=== PATIENT | female | born 1970 | race Caucasian/White ===

== ENCOUNTER 2016-07-06 20:13 | Inpatient (IN) | payer BC ==
--- NOTE | 2016-07-06 20:18 | PDOC ---
Rapid Medical Evaluation Time Seen by Provider: 07/06/16 20:13 Medical Evaluation: Allergies Allergy/AdvReac Type Severity Reaction Status Date / Time No Known Allergies Allergy Verified 02/09/16 19:40 07/06/16 20:13 I have performed a brief exam on this patient Pt c/o SOB with intermittent pain to right lung base hx of pneumonthorax x 2 to right side. No known etiology 100% o2 sat, LCTA bilateral. No smoking hx. Chest pa/lat ordered Pt will be seen in the main ED.
--- NOTE | 2016-07-06 20:52 | PDOC ---
*Physical Exam - Vital Signs Last Vital Signs Temp Pulse Resp BP Pulse Ox 98.1 F 73 16 134/76 100 07/06/16 20:15 07/06/16 20:15 07/06/16 20:15 07/06/16 20:15 07/06/16 20:15 ED Treatment Course - LABORATORY CBC & Chemistry Diagram: 07/07/16 05:10 07/07/16 05:10 Medical Decision Making - Medical Decision Making 07/06/16 20:50 agree with care from JHONATAN Gant Pt with h/o recurrent Ptx's presents with difficulty breathing. Will get Ct chest to r/o PTx. 07/06/16 23:09 Pt found to have a 20-30% right sided subpulmonic PTX. Spoke to Dr Short ( thoracic surgery). He will see her in am. Pt to be placed on non-rebreather and have serial chest xrays. Nest one in 6 hours. *DC/Admit/Observation/Transfer Diagnosis at time of Disposition: Pneumothorax
--- NOTE | 2016-07-06 21:07 | PDOC ---
[id number] 4d RESPIRATORY Time Seen by Provider: 07/06/16 20:13 - History of Present Illness Initial Comments: 07/06/16 20:51 CHIEF COMPLAINT: right sided discomfort to rib/lung HISTORY OF PRESENT ILLNESS: 45 yo F with hx of 2 pneumothorax to R lung presents to ED with right sided discomfort with inspiration. Patient states she has been feeling this discomfort for the past two days but she came to the ED today because it is becoming worse. Patient denies any difficulty breathing but does feel discomfort to her right side that "feels like previous pneumothorax." She denies fever, vomiting, diarrhea, but does report some nausea today. No recent travel or sick contacts. PAST MEDICAL HISTORY: as per HPI FAMILY HISTORY: Denies SOCIAL HISTORY: Denies tobacco, alcohol, illicit drug use. SURGICAL HISTORY: breast implants (8 years ago), chest tubes 1-2 years ago ALLERGIES: No known drug allergies REVIEW OF SYSTEMS General/Constitutional: Denies fever or chills. Denies weakness, weight change. HEENT: Denies change in vision. Denies ear pain or discharge. Denies sore throat. Cardiovascular: Denies chest pain or shortness of breath. Respiratory: Discomfort to R side with inspiration. Denies cough, wheezing, or hemoptysis. Gastrointestinal: Denies nausea, vomiting, diarrhea or constipation. Denies rectal bleeding. Genitourinary: Denies dysuria, frequency, or change in urination. Musculoskeletal: Denies joint or muscle swelling or pain. Denies neck or back pain. Skin and breasts: Denies rash or easy bruising. Neurologic: Denies headache, vertigo, loss of consciousness, or loss of sensation. PHYSICAL EXAM General Appearance: Well-appearing, appropriately dressed. No apparent distress , no intoxication. HEENT: EOMI, PERRLA, normal ENT inspection, normal voice, TMs normal, pharynx normal. No conjunctival pallor. No photophobia, scleral icterus. Respiratory/Chest: Lungs CTAB. No shortness of breath, chest tenderness, respiratory distress, accessory muscle use. No crackles, rales, rhonchi, stridor , wheezing, dullness Cardiovascular: RRR. S1, S2. Gastrointestinal/Abdominal: Normal bowel sounds. Abdomen soft, non-distended. No tenderness or rebound tenderness. No organomegaly, pulsatile mass, guarding , hernia, hepatomegaly, splenomegaly. Musculoskeletal/Extremities: Normal inspection. FROM of all extremities, normal capillary refill. No tenderness to extremities, pedal edema, swelling, erythema or deformity. Integumentary: Healed R lateral upper thoracic scars s/p chest tube insertions. Appropriate color, dry, warm. No cyanosis, erythema, jaundice or rash Neurologic: robotics technician II-XII intact. Fully oriented, alert. Appropriate mood/affect. Motor strength 5/5. No appreciable EOM palsy, facial droop or sensory deficit. 07/06/16 21:51 Past History - Past Medical History Allergies/Adverse Reactions: Allergies Allergy/AdvReac Type Severity Reaction Status Date / Time shellfish derived Allergy Unknown Verified 07/08/16 11:43 Home Medications: Ambulatory Orders Acetaminophen [Tylenol .Regular Strength -] 650 mg PO Q6H PRN #0 tablet Ibuprofen [Motrin -] 400 mg PO Q6H PRN #0 tablet 07/09/16 Anemia: No Asthma: Yes (SPONTANEOUS PNEUMOTHORAX) Cancer: No Cardiac Disorders: No CVA: No COPD: No CHF: No Dementia: No Diabetes: No Disorders: No HTN: No Hypercholesterolemia: No Liver Disease: No Suicide Attempt (Hx): No Seizures: No Thyroid Disease: No - Surgical History Abdominal Surgery: No Appendectomy: No Cardiac Surgery: Yes (chest tube insertion X2) Cholecystectomy: No Neurologic Surgery: No Orthopedic Surgery: No - Psycho/Social/Smoking Cessation Hx Anxiety: No Suicidal Ideation: No Smoking History: Never smoked Have you smoked in the past 12 months: No Number of Cigarettes Smoked Daily: 0 Information on smoking cessation initiated: No Hx Alcohol Use: No Drug/Substance Use Hx: No Substance Use Type: None Hx Substance Use Treatment: No *Physical Exam - Vital Signs Last Vital Signs Temp Pulse Resp BP Pulse Ox 98.1 F 73 16 134/76 100 07/06/16 20:15 07/06/16 20:15 07/06/16 20:15 07/06/16 20:15 07/06/16 20:15 ED Treatment Course - LABORATORY CBC & Chemistry Diagram: 07/07/16 05:10 07/07/16 05:10 - RADIOLOGY Radiology Studies Ordered: Category Date Time Status CHEST CT WITHOUT CONTRAST [CT] Stat CT Scan 07/06/16 20:49 Ordered RIBS BILATERAL [RAD] Stat Radiology 07/06/16 20:50 Ordered Medical Decision Making - Medical Decision Making 07/06/16 21:53 45 yo F with hx of 2 pneumothoraces presents to ED with R sided discomfort with inspiration. -CXR Chest x-ray negative for pulmonary pathology. Patient lungs are CTAB, but due to hx of recurrent pneumothoraces, will order CT for further eval. -Non-contract chest CT -UA, Ucx, urine -Spiral CT r/o renal stone Labs: UA: 3 RBC, 29 WBC. Will begin treatment for UTI. -500 mg Keflex po Awaiting CT results. 07/06/16 23:[address] results: 20-30% R sided pneumothorax identified. Several pleural adhesions are noted within the right lower chest. Spiral CT results: Multiple bilateral 3 mm nonobstructing renal calculi noted. 5.2 cm left hepatic lobe soft tissue lesion is seen which is unchanged in comparison to a chest CT exam of 12/25/14. On a statistical basis this finding probably represents a large hemangioma and less likely fibronodular hyperplasia or an ademona. Sonographic evaluation is suggested. Incidental note is made of several small stable left and right hepatic lobe cysts/hemangiomas. Moderate colonic fecal retention. Small amount of free fluid is seen within the cul-de-sac. ER attending MD Thompson discussed case with CT surgery. Will admit to ICU for close monitoring, non-rebreather, serial x-rays, and reevaluation. Discussed case with patient's PCP MD Bo, who accepts patient to ICU admission. Discussed case with ICU AIX SYSTEM ADMINISTRATOR Sharad, who accepts patient to ICU admission. *DC/Admit/Observation/Transfer Diagnosis at time of Disposition: Pneumothorax Qualifiers: Pneumothorax type: unspecified pneumothorax Qualified Code(s): J93.9 - Pneumothorax, unspecified - Discharge Dispostion Disposition: HOME Condition at time of disposition: Improved Admit: Yes
[2016-07-06 21:21] LABS: URINE APPEARANCE TURBID; URINE BILIRUBIN NEGATIVE (NEGATIVE); URINE BLOOD NEGATIVE (NEGATIVE); URINE COLOR YELLOW; URINE GLUCOSE (UA) NEGATIVE (NEGATIVE); URINE KETONE NEGATIVE (NEGATIVE); URINE LEUK ESTERASE 1+ (NEGATIVE); URINE NITRITE NEGATIVE (NEGATIVE); URINE PROTEIN NEGATIVE (NEGATIVE); URINE UROBILINOGEN NEGATIVE E.U./dl (0.2-1.0)
[2016-07-06 21:25] LABS: URINE BACTERIA RARE /hpf (NONE SEEN); URINE MUCUS RARE; URINE RBC 3 /hpf (0-3); URINE WBC 29 /hpf (3-5); YEAST MANY
[2016-07-06] MEDS ORDERED: CEPHALEXIN MONOHYDRATE 500 MG CAPSULE (UD) PO ONE (23:25)
[2016-07-06] MEDS ORDERED: ACETAMINOPHEN 325 MG TABLET (FP) PO PRN (23:30)
[2016-07-06] MEDS ORDERED: CEPHALEXIN MONOHYDRATE 250 MG CAPSULE (FP) ONE (23:38)
[2016-07-06 23:40] LABS: BASOPHIL 0.7 % (0-2.0); EOSINOPHIL 1.2 % (0-4.5); MCH 31.8 pg (25.7-33.7); MCHC 33.6 g/dl (32.0-36.0); MEAN CELL VOLUME 94.6 fl (80-96); MEAN PLT VOLUME 8.1 fl (7.5-11.1); NEUTROPHILS 66.8 % (42.8-82.8); PLATELET COUNT 254 K/MM3 (134-434); RDW 13.2 % (11.6-15.6); WHITE BLOOD COUNT 7.5 K/mm3 (4.0-10.0)
[2016-07-06 23:59] LABS: INR 1.04 (0.82-1.09); PROTHROMBIN TIME (PATIENT) 11.4 SEC (9.98-11.88)
[2016-07-07 00:07] LABS: ALBUMIN 3.7 g/dl (3.4-5.0); ANION GAP 11 (8-16); BILIRUBIN,TOTAL 0.6 mg/dL (0.2-1.0); CALCIUM 8.9 mg/dL (8.5-10.1); CO2 24 mmol/L (21-32); CREATININE 0.8 mg/dL (0.55-1.02); GLUCOSE,RANDOM 94 mg/dL (74-106); SGOT/AST 22 U/L (15-37); SGPT/ALT 19 U/L (12-78)
[2016-07-07 00:08] LABS: ALK PHOS 45 U/L (45-117)
[2016-07-07] MEDS ORDERED: morphine CARPU-JECT 2 MG/1 ML DISP.SYRIN IVPUSH PRN (00:34)
[2016-07-07] MEDS ORDERED: OXYCODONE/APAP 5/325MG COMBO TABLET PO PRN (00:35)
[2016-07-07 00:39] VITALS: BMI 22.8
[2016-07-07] MEDS ORDERED: oxyCODONE HCL 5 MG TABLET PO PRN (00:41)
[2016-07-07] MEDS ORDERED: ACETAMINOPHEN 325 MG TABLET (FP) PO PRN (00:41)
--- NOTE | 2016-07-07 00:44 | CONSULT ---
Consult Consult Specialty:: Pulm/CC - History of Present Illness Chief Complaint: SOB History of Present Illness: Pt is a 45yr old woman with PMHx of breast implants and 2 previous spontaneous pneumothorax. In the ER found to have third rt pneumothorax. Of note, all three have been sia-menstrual cycle. Pt admitted to the ICU for further management and observation. Per report, chest tube not indicated at this time. Upon assessment pt denies chest pain/headache/n/v and endorses intermittent sob. 96/ 58, 60s (sinus on tele), 100% on 2LNC, 98.3 RR low 20s. - History Source History Provided By: Patient, Medical Record Limitations to Obtaining History: Other (endorses being comfortable communicating in Italian) - Past Medical History Pulmonary: Yes: Other (Spontaneus pneumothorax) ...LMP: 06/09/16 ...LMP Comment: expect period tomorrow ...: No Additional Medical History: spontaneous pneumothax - Alcohol/Substance Use Hx Alcohol Use: No - Smoking History Smoking history: Never smoked Have you smoked in the past 12 months: No Aproximately how many cigarettes per day: 0 - Social History ADL: Independent Occupation: [email or web address] Home Medications - Allergies Allergies/Adverse Reactions: Allergies Allergy/AdvReac Type Severity Reaction Status Date / Time No Known Allergies Allergy Verified 07/06/16 20:15 - Home Medications Home Medications: Ambulatory Orders NK [No Known Home Medication] 07/06/16 Family Disease History - Family Disease History Family Disease History: Other: Father (healthy and living), Mother (healthy and living), Sister (healthy and living) Review of Systems - Review of Systems Cardiovascular: reports: Chest Pain (rt side), Shortness of Breath Gastrointestinal: denies: Diarrhea, Nausea, Vomiting Genitourinary: reports: Menses, Other (denies itching). denies: Discharge Neurological: reports: Dizziness, Headache Physical Exam Vital Signs: Vital Signs Period Temp Pulse Resp BP Sys/Palmer Pulse Ox Last 24 Hr 98.1 F-98.3 F 58-73 16-18 98-134/56-76 100-100 Intake & Output 07/04/16 07/05/16 07/06/16 07/07/16 23:59 23:59 23:59 23:59 Weight 132 lb 15.02 oz Constitutional: Yes: Well Nourished, No Distress, Calm Eyes: Yes: WNL, PERRL HENT: Yes: WNL Neck: Yes: WNL Cardiovascular: Yes: S1, S2 Respiratory: Yes: Diminished (rt side), On Nasal O2. No: Accessory Muscle Use, Rales, Rhonchi, Wheezes Gastrointestinal: Yes: Normal Bowel Sounds. No: Tenderness ...Rectal Exam: Yes: Deferred Edema: No Peripheral Pulses WNL: Yes (+2 bilateral pedal pulses ) Integumentary: Yes: WNL Psychiatric: Yes: WNL Labs: Abnormal Lab Results 07/06/16 21:05 Ur Leukocyte Esterase 1+ H Imaging - Results Chest X-ray: Image Reviewed Cat Scan: Report Reviewed (chest) Other: Report Reviewed (ab/pel) Assessment/Plan Pt is a 45yr old woman with PMHx of breast implants and 2 previous spontaneous pneumothorax. Now with third rt side pneumothorax. Pulm: -O2 support -Surgical consult for possible chest tube -Serial chest xrays -Continuous pulse ox ID: +leukocyte esterase in urine with yeast. Pt denies discharge/symptoms, wbc wnl, afebrile. -Monitor off antibiotics for now Cardiac: pt endorsing intermittent rt side chest pain, likely from pneumothorax -f/u cardiac enzymes -repeat ekg in a.m Neuro -Pain management Renal -Replete electrolytes prn GI: Hepatic lobe soft tissue lesions, hepatic cysts/hemangiomas on ab/pel ct -Consider hepatic sono for f/u Prophylactic -Stool softener in setting of pain management
[2016-07-07 03:01] LABS: TROPONIN I < 0.02 ng/ml (0.00-0.05)
[2016-07-07 03:22] LABS: MAGNESIUM 1.9 mg/dL (1.8-2.4)
[2016-07-07 06:03] LABS: MCH 31.9 pg (25.7-33.7); MCHC 33.7 g/dl (32.0-36.0); MEAN CELL VOLUME 94.7 fl (80-96); MEAN PLT VOLUME 8.1 fl (7.5-11.1); PLATELET COUNT 247 K/MM3 (134-434); RDW 12.7 % (11.6-15.6); WHITE BLOOD COUNT 7.1 K/mm3 (4.0-10.0)
[2016-07-07 06:16] LABS: CALCIUM 8.4 mg/dL (8.5-10.1)
[2016-07-07 06:17] LABS: CREATININE 0.7 mg/dL (0.55-1.02)
[2016-07-07] MEDS ORDERED: IBUPROFEN 400 MG TABLET (FP) PO ONE ×2 (07:45→08:45)
--- NOTE | 2016-07-07 08:26 | PN ---
Physical Exam: SUBJECTIVE: Patient seen and examined at bed side in ICU. patient sitting up comfortably in no respiratory distress. Patient currently menstruating and reports cramps. BP 86/54 HR 64 with no JVD, started on IVNS. No overnight events. She denies fever, chills, cough, sputum production, and hemoptysis. saturating 100% on 2LNC OBJECTIVE: Vital Signs Period Temp Pulse Resp BP Sys/Palmer Pulse Ox Last 24 Hr 98.1 F-98.3 F 56-62 18-20 86-102/50-61 100-100 GENERAL: The patient is awake, alert, and fully oriented, in no acute distress, calm HEAD: Normal with no signs of trauma. EYES: extraocular movements intact, sclera anicteric, conjunctiva clear. ENT: Ears normal, nares patent, oropharynx clear without exudates, moist mucous membranes. NECK: Trachea midline, full range of motion, supple. LUNGS: BS Diminished on Right side, clear to auscultation bilaterally, no wheezes, no crackles, no accessory muscle use. sat 100% 2L NC HEART: Regular rate and rhythm, S1, S2 without murmur, rub or gallop. ABDOMEN: Soft, nontender, nondistended, normoactive bowel sounds, no guarding, no rebound, no hepatosplenomegaly, no masses. EXTREMITIES: 2+ pulses, warm, well-perfused, no edema. NEUROLOGICAL: Normal speech, gait not observed. PSYCH: Normal mood, normal affect. SKIN: Warm, dry, normal turgor, no rashes or lesions noted Laboratory Results - last 24 hr 07/07/16 07/07/16 05:10 05:10 WBC 7.1 RBC 3.71 Hgb 11.8 Hct 35.1 MCV 94.7 MCHC 33.7 RDW 12.7 Plt Count 247 MPV 8.1 Sodium 142 Potassium 4.1 Chloride 111 H Carbon Dioxide 26 Anion Gap 5 L BUN 14 Creatinine 0.7 Random Glucose 95 Calcium 8.4 L Active Medications Generic Name Dose Route Start Last Admin Trade Name Freq PRN Reason Stop Dose Admin Acetaminophen 650 mg 07/06/16 23:30 Tylenol - PO Q6H PRN PAIN Acetaminophen 325 mg 07/07/16 00:41 Tylenol - PO Q6H PRN PAIN Morphine Sulfate 1 mg 07/07/16 00:34 Morphine Injection - IVPUSH Q3H PRN PAIN Oxycodone HCl 5 mg 07/07/16 00:41 Roxicodone - PO Q6H PRN PAIN ASSESSMENT/PLAN: Pt is a 45yr old woman with PMHx of breast implants and 2 previous spontaneous pneumothorax, s/p right VATS, bullectomy, and mechanical pleurodesis (2015), presented to [facility] with complaints of right chest pain and shortness of breath during her menstruation. . Pulm: in light of history and presentation suspicious for third Catamenial Pneumothorax s/p VAT not on BCP, An approximately 20 - 30% right-sided pneumothorax is seen which is principally subpulmonic in location. The location and distribution of this recurrent pneumothorax is similar to a prior CT exam of 12/31/2014. Her repeat chest x-ray today showed stable pneumothorax. -supplemental O2 2L NC -Surgical consult Dr. cao, appreciated, -Serial CXR, will consider consulting IR if increase in size and clinical stability. -Continuous pulse ox -OBGY consult fort possible hormonal therapy ID: +leukocyte esterase in urine with yeast. Pt denies discharge/symptoms, wbc wnl, afebrile. -Monitor off antibiotics for now Cardiac: pt endorsing intermittent rt side chest pressure inc with deep inspiration, likely from pneumothorax -cardiac enzymes negative x 1 Hypotension: currenlty clinicaly stable, in no acute distress, not a tension pneumothorax HR normal and no JVD. -start IVNS Neuro -Pain management Renal -Replete electrolytes prn GI: Hepatic lobe soft tissue lesions, hepatic cysts/hemangiomas on ab/pel ct -Consider hepatic sono for f/u Prophylactic -Stool softener in setting of pain management -DVT, heparin sub q FEN IVNS replete electrolyte as needed regular diet Dispo: continue ICU will follow CXR size and stability Visit type - Emergency Visit Emergency Visit: Yes ED Registration Date: 07/06/16 Care time: The patient presented to the Emergency Department on the above date and was hospitalized for further evaluation of their emergent condition. - New Patient This patient is new to me today: Yes Date on this admission: 07/06/16 - Critical Care Critical Care patient: Yes Total Critical Care Time (in minutes): 45 Critical Care Statement: The care of this patient involved high complexity decision making to prevent further life threatening deterioration of the patient 's condition and/or to evalute & treat vital organ system(s) failure or risk of failure.
[2016-07-07] MEDS ORDERED: SODIUM CHLORIDE 1,000 ML IV SCH (09:15)
--- NOTE | 2016-07-07 13:00 | CONSULT ---
Consult Consult Specialty:: Thoracic Surgery Referred by:: Dr. Renetta Bo Reason for Consultation:: Right pneumothorax - History of Present Illness Chief Complaint: Shortness of breath History of Present Illness: A 45-year-old female with history of recurrent catamenial right pneumothorax, s/ p right VATS, bullectomy, and mechanical pleurodesis (2016), presented to [facility] with complaints of right chest pain and shortness of breath. Her workup including chest x-ray and CT chest showed small right pneumothorax. She reports that she has been well until she developed her respiratory symptoms during her menstruation. She feels better with oxygen support today. Her repeat chest x-ray showed stable pneumothorax. She denies fever, chills, cough , sputum production, and hemoptysis. - History Source History Provided By: Patient, Medical Record Limitations to Obtaining History: No Limitations - Past Medical History Pulmonary: Yes: Other (Spontaneus pneumothorax) ...LMP: 06/09/16 ...LMP Comment: expect period tomorrow ...: No Additional Medical History: spontaneous pneumothax - Past Surgical History Additional Surgical History: s/p right VATS, bullectomy, mechanical pleurodesis , and partial pleurectomy (2016) - Alcohol/Substance Use Hx Alcohol Use: No - Smoking History Smoking history: Never smoked Have you smoked in the past 12 months: No Aproximately how many cigarettes per day: 0 - Social History ADL: Independent Occupation: babysits Home Medications - Allergies Allergies/Adverse Reactions: Allergies Allergy/AdvReac Type Severity Reaction Status Date / Time No Known Allergies Allergy Verified 07/06/16 20:15 - Home Medications Home Medications: Ambulatory Orders NK [No Known Home Medication] 07/06/16 Family Disease History - Family Disease History Family Disease History: Other: Father (healthy and living), Mother (healthy and living), Sister (healthy and living) Review of Systems - Review of Systems Constitutional: reports: No Symptoms Eyes: reports: No Symptoms HENT: reports: No Symptoms Neck: reports: No Symptoms Cardiovascular: reports: No Symptoms Respiratory: reports: SOB Gastrointestinal: reports: No Symptoms Genitourinary: reports: No Symptoms Breasts: reports: No Symptoms Reported Musculoskeletal: reports: No Symptoms Integumentary: reports: No Symptoms Neurological: reports: No Symptoms Endocrine: reports: No Symptoms Hematology/Lymphatic: reports: No Symptoms Psychiatric: reports: No Symptoms Physical Exam Vital Signs: Vital Signs Temperature 98.1 F 07/07/16 06:32 Pulse Rate 56 L 07/07/16 06:32 Respiratory Rate 18 07/07/16 09:00 Blood Pressure 86/54 07/07/16 06:32 O2 Sat by Pulse Oximetry (%) 100 07/07/16 09:00 Constitutional: Yes: Well Nourished, No Distress Eyes: Yes: WNL HENT: Yes: WNL Neck: Yes: WNL Cardiovascular: Yes: WNL Respiratory: Yes: WNL (minimally decreased breath sound in right base.) Gastrointestinal: Yes: WNL ...Rectal Exam: Yes: Deferred Renal/: Yes: WNL Musculoskeletal: Yes: WNL Extremities: Yes: WNL Edema: No Peripheral Pulses WNL: Yes Integumentary: Yes: WNL Neurological: Yes: WNL Psychiatric: Yes: WNL Labs: CBC, BMP 07/07/16 05:10 07/07/16 05:10 Imaging - Results Chest X-ray: Report Reviewed, Image Reviewed Cat Scan: Report Reviewed, Image Reviewed Assessment/Plan A 45-year-old female with history of recurrent catamenial pneumothorax, s/p right VATS, bullectomy, mechanical pleurodesis, and partial pleurectomy, who presented to [facility] with complaints of SOB and right chest pain. Her radiographic studies were reviewed and discussed with the patient and her in extensive detail. She appears to have small recurrent right pneumothorax during her menstruation. However she remains stable clinically and radiologically with no evidence of expanding or tension pneumothorax. She was given multiple options including conservative medical management with serial chest x-ray, pleural drain and definitive surgical intervention (redo VATS, bullectomy, and radical pleurectomy). She wishes to proceed with medical management as she remains stable with no respiratory distress at the present time. She is aware and understood her medical and surgical condition. All questions were answered in satisfactory manner. 1. Continue supportive care 2. Serial chest x-ray 3. IR pleural catheter if worsening clinically or expanding pneumothorax 4. retail key holder consult for hormonal therapy 5. Discussed with PMD, pulmonary and ICU service 6. Thank you for the interesting consult. Will follow with you.
--- NOTE | 2016-07-07 13:19 | HP ---
Admitting History and Physical - Primary Care Physician PCP: Renetta Bo S - Admission Chief Complaint: R CP and SOB History of Present Illness: 45 yo F with hx of 2 pneumothorax to R lung presents to ED with right sided discomfort with inspiration. Patient states she has been feeling this discomfort for the past two days but she came to the ER last night because it is becoming worse. Patient denies any difficulty breathing but does feel discomfort to her right side that "feels like previous pneumothorax." She denies fever, vomiting, diarrhea, but does report some nausea. LMP Now states not No recent travel or sick contacts. History Source: Patient, Medical Record Limitations to Obtaining History: No Limitations - Past Medical History Pulmonary: Yes: Other (Spontaneus pneumothorax) ...LMP: 06/09/16 ...LMP Comment: expect period tomorrow ...: No - Smoking History Smoking history: Never smoked Have you smoked in the past 12 months: No Aproximately how many cigarettes per day: 0 - Alcohol/Substance Use Hx Alcohol Use: No History of Substance Use: reports: None - Social History Usual Living Arrangement: Yes: With Spouse ADL: Independent Occupation: babysits History of Recent Travel: No Home Medications - Allergies Allergies/Adverse Reactions: Allergies Allergy/AdvReac Type Severity Reaction Status Date / Time shellfish derived Allergy Unknown Verified 07/08/16 11:43 - Home Medications Home Medications: Ambulatory Orders NK [No Known Home Medication] 07/06/16 Family Disease History - Family Disease History Family Disease History: Other: Father (healthy and living), Mother (healthy and living), Sister (healthy and living) Review of Systems - Review of Systems Constitutional: denies: Chills, Fever Eyes: denies: Blurred Vision, Double Vision HENT: denies: Difficult Swallowing, Ear Pain Neck: denies: Stiffness, Tenderness Cardiovascular: reports: Chest Pain, Shortness of Breath. denies: Edema, Palpitations Respiratory: denies: Cough, Hemoptysis Gastrointestinal: denies: Abdominal Pain, Constipation, Diarrhea, Vomiting Genitourinary: denies: Dysuria, Flank Pain Musculoskeletal: denies: Back Pain, Joint Pain Neurological: denies: Change in LOC, Change in Speech, Confusion, Seizure, Syncope, Unsteady Gait Hematology/Lymphatic: denies: Easily Bruised, Excessive Bleeding Psychiatric: denies: Altered Sleep Pattern, Anxiety, Depression Physical Examination Vital Signs: Vital Signs Temperature 98.1 F 07/07/16 06:32 Pulse Rate 56 L 07/07/16 06:32 Respiratory Rate 18 07/07/16 09:00 Blood Pressure 86/54 07/07/16 06:32 O2 Sat by Pulse Oximetry (%) 100 07/07/16 09:00 Findings/Remarks: pt seen in ICU; axox3 NAD; at bedside Constitutional: Yes: No Distress, Calm Eyes: Yes: Conjunctiva Clear HENT: Yes: Atraumatic Neck: Yes: Supple Cardiovascular: Yes: Regular Rate and Rhythm Respiratory: Yes: Diminished (R sided) Gastrointestinal: Yes: Soft. No: Distention, Tenderness Renal/: No: CVA Tenderness - Left, CVA Tenderness - Right Musculoskeletal: No: Joint Stiffness, Joint Swelling Extremities: No: Cold, Cool Edema: No Peripheral Pulses WNL: Yes Integumentary: No: Rash, Venous Stasis Changes Neurological: Yes: WNL, Alert, Oriented ...Motor Strength: WNL Psychiatric: Yes: WNL, Alert, Oriented. No: Agitated, Suicidal Ideation Labs: CBC, BMP 07/07/16 05:10 07/07/16 05:10 Imaging - Results Chest X-ray: Report Reviewed Other: Report Reviewed Assessment/Plan 45 female with h/o spontaneous pneumothorax admitted with R CP/SOB new small pneumothorax seen on CXR case d/w pulm ICU dr Hazel and CT surgery dr Guadarrama and films reviewed no surgery indicated at this point will check serial CXR if pneumo stable can be DC home in 1-2 days and f/u outpt also to see TELEMARKETING SALES REPRESENTATIVE for possible catamenial pneumothorax and BCP pills in order to prevent future pneumothorax DVT PFX d/w pt and staff, d/w pt's at bedside d/w ICU and CT sx attendings T time 90 min
--- NOTE | 2016-07-07 13:29 | EKG ---
Test Reason : Blood Pressure : / mmHG Vent. Rate : 060 BPM Atrial Rate : 060 BPM P-R Int : 122 ms QRS Dur : 090 ms QT Int : 448 ms P-R-T Axes : 062 073 068 degrees QTc Int : 448 ms NORMAL SINUS RHYTHM NORMAL ECG WHEN COMPARED WITH ECG OF 30-SEP-2015 00:10, NO SIGNIFICANT CHANGE WAS FOUND Confirmed by CARLOS KAPADIA MD ([id number]) on 07/07/2016 1:29:03 PM Referred By: Confirmed By:CARLOS KAPADIA MD
--- NOTE | 2016-07-07 13:52 | PN ---
Teaching Attending Note Name of Resident: Derek Lopez ATTENDING PHYSICIAN STATEMENT I saw and evaluated the patient. I reviewed the resident's note and discussed the case with the resident. I agree with the resident's findings and plan as documented. SUBJECTIVE: Breathing feels about the same. CXR : no significant change in small Right PTX. Intake & Output 07/04/16 07/05/16 07/06/16 07/07/16 23:59 23:59 23:59 23:59 Weight 132 lb 15.02 oz Last Vital Signs Temp Pulse Resp BP Pulse Ox 98.1 F 56 L 18 86/54 100 07/07/16 06:32 07/07/16 06:32 07/07/16 09:00 07/07/16 06:32 07/07/16 09:00 Active Medications Acetaminophen (Tylenol -) 650 mg PO Q6H PRN PRN Reason: PAIN Acetaminophen (Tylenol -) 325 mg PO Q6H PRN PRN Reason: PAIN Sodium Chloride (Normal Saline -) 1,000 mls @ 125 mls/hr IV ASDIR CASTILLO Last Admin: 07/07/16 10:00 Dose: 125 mls/hr Morphine Sulfate (Morphine Injection -) 1 mg IVPUSH Q3H PRN PRN Reason: PAIN Oxycodone HCl (Roxicodone -) 5 mg PO Q6H PRN PRN Reason: PAIN Constitutional: Yes: Well Nourished, No Distress Eyes: Yes: WNL, PERRL HENT: Yes: WNL Neck: Yes: WNL Cardiovascular: Yes: S1, S2 Respiratory: Yes: Clear, On Nasal O2. No: Accessory Muscle Use, Rales, Rhonchi , Wheezes Gastrointestinal: Yes: Normal Bowel Sounds. No: Tenderness ...Rectal Exam: Yes: Deferred Edema: No Peripheral Pulses WNL: Yes (+2 bilateral pedal pulses ) Integumentary: Yes: WNL Psychiatric: Yes: WNL Labs: Assessment/Plan (?) Catamenial PTX Recurrent PTX (3rd) Surgical consult noted -> for now will follow CXR and clinical symptoms since PTX is small O2 BD TX PRN OOB to chair Incentive Spirometry PO as tolerated Will likely need OPCs Dr Hazel
[2016-07-07] MEDS: IBUPROFEN 400 MG TABLET (FP) PO PRN (17:00)
[2016-07-07] MEDS: HEPARIN NA (PORCINE) 5,000 UNITS/ML 1ML VIAL SQ SCH (21:39)
[2016-07-08] MEDS: IBUPROFEN 400 MG TABLET (FP) PO PRN ×3 (02:35→18:38)
[2016-07-08] MEDS: HEPARIN NA (PORCINE) 5,000 UNITS/ML 1ML VIAL SQ SCH ×3 (06:32→22:29)
--- NOTE | 2016-07-08 07:52 | PN ---
Physical Exam: SUBJECTIVE: Patient seen and examined this am in the ICU. patient reports same chest pressure on inspiration and breathing. patient sitting confortaably in no acute distress. afebrile, vitals stable. No overnight events. She denies fever, chills, cough, sputum production, and hemoptysis. saturating 100% on 2LNC. CXR yesterday Slightly decreased right pneumothorax. Will go down for another CXR today. OBJECTIVE: Vital Signs Period Temp Pulse Resp BP Sys/Palmer Pulse Ox Last 24 Hr 98.2 F-98.8 F 51-80 14-23 91-100/53-68 100 GENERAL: The patient is awake, alert, and fully oriented, in no acute distress, calm HEAD: Normal with no signs of trauma. EYES: extraocular movements intact, sclera anicteric, conjunctiva clear. ENT: Ears normal, nares patent, oropharynx clear without exudates, moist mucous membranes. NECK: Trachea midline, full range of motion, supple. LUNGS: BS Diminished on Right side, clear to auscultation bilaterally, no wheezes, no crackles, no accessory muscle use. sat 100% 2L NC HEART: Regular rate and rhythm, S1, S2 without murmur, rub or gallop. ABDOMEN: Soft, discomfurt on palpation attributes to menstruation cramps, nondistended, normoactive bowel sounds, no guarding, no rebound, no hepatosplenomegaly, no masses. EXTREMITIES: 2+ pulses, warm, well-perfused, no edema. NEUROLOGICAL: Normal speech, gait not observed. PSYCH: Normal mood, normal affect. SKIN: Warm, dry, normal turgor, no rashes or lesions noted Active Medications Generic Name Dose Route Start Last Admin Trade Name Freq PRN Reason Stop Dose Admin Acetaminophen 650 mg 07/06/16 23:30 Tylenol - PO Q6H PRN PAIN Acetaminophen 325 mg 07/07/16 00:41 Tylenol - PO Q6H PRN PAIN Heparin Sodium (Porcine) 5,000 unit 07/07/16 22:00 07/08/16 06:32 Heparin - SQ 5,000 unit TID CASTILLO Administration Sodium Chloride 1,000 mls @ 125 mls/hr 07/07/16 09:15 07/07/16 10:00 Normal Saline - IV 125 mls/hr ASDIR CASTILLO Administration Ibuprofen 400 mg 07/07/16 15:06 07/08/16 02:35 Motrin - PO 400 mg Q6H PRN Administration PAIN Morphine Sulfate 1 mg 07/07/16 00:34 Morphine Injection - IVPUSH Q3H PRN PAIN Oxycodone HCl 5 mg 07/07/16 00:41 Roxicodone - PO Q6H PRN PAIN ASSESSMENT/PLAN: Pt is a 45yr old woman with PMHx of breast implants and 2 previous spontaneous pneumothorax, s/p right VATS, bullectomy, and mechanical pleurodesis (2015), presented to [facility] with complaints of right chest pain and shortness of breath during her menstruation. . Pulm: in light of history and presentation suspicious for third Catamenial Pneumothorax s/p VAT not on BCP, An approximately 20 - 30% right-sided pneumothorax is seen which is principally subpulmonic in location. The location and distribution of this recurrent pneumothorax is similar to a prior CT exam of 12/31/2014. Her repeat chest x-ray yesterday shows slightly decreased right pneumothorax. Repeat Chest x-ray today no change from yesterday. -supplemental O2 2L NC -Surgical consult Dr. cao, appreciated, -Serial CXR, will consider consulting IR if increase in size and clinical stability. -Continuous pulse ox -OBGY consult appreciated. OBGYN suggestion starting on ocp or depo provera as outpatient. -Incentive spirometer ID: +leukocyte esterase in urine with yeast. Pt denies discharge/symptoms, wbc wnl, afebrile. -Monitor off antibiotics for now Cardiac: pt endorsing intermittent rt side chest pressure inc with deep inspiration, likely from pneumothorax -cardiac enzymes negative x 1 Hypotension: resolved -d/c IVF Neuro -Pain management Renal -Replete electrolytes prn GI: Hepatic lobe soft tissue lesions, hepatic cysts/hemangiomas on ab/pel ct -Consider hepatic sono for f/u Prophylactic -Stool softener in setting of pain management -DVT, heparin sub q FEN IVNS replete electrolyte as needed regular diet Dispo: if official read not increase in size can be discharged home for supportive care and Depo. Visit type - Emergency Visit Emergency Visit: Yes ED Registration Date: 07/06/16 Care time: The patient presented to the Emergency Department on the above date and was hospitalized for further evaluation of their emergent condition. - New Patient This patient is new to me today: No - Critical Care Critical Care patient: Yes Total Critical Care Time (in minutes): 45 Critical Care Statement: The care of this patient involved high complexity decision making to prevent further life threatening deterioration of the patient 's condition and/or to evalute & treat vital organ system(s) failure or risk of failure.
--- NOTE | 2016-07-08 09:05 | CON.OBG ---
Consult Reason for Consultation:: 45 y/o with ptx and ? catamennial endometriosis - History of Present Illness Chief Complaint: as above History of Present Illness: 45 y/o G0 admitted with 3rd ptx. Consulted for ? catamennial endometriosis. Pt states that this is 3rd time experienced ptx with cycle, but not consecutive. She admits to regular cycles, no pain, no pain during sex. Denies intermenstrual bleeding or pain. No cycles issues before . States she attempted to become about 28 years of age ans was told her tubes were blocked. Describes a test, which sound like and HSG that was done to prove it. Did not have laparoscopy or further workup. Denies std. - History Source History Provided By: Patient Limitations to Obtaining History: No Limitations - Past Medical History HOOP CUTTER: No: Alzheimer's, CVA, Dementia, Migraine, Multiple Sclerosis, Peripheral Neuropathy, Parkinson's, Seizure, Syncope, TIA, Vertigo, Other Cardio/Vascular: No: AFIB, Aneurysm, Aortic Insufficiency, Aortic Stenosis, CAD , CHF, Deep Vein Thrombosis, HTN, Hyperlipdemia, VA, Mitral Insufficiency, Mitral Stenosis, Murmur, Pulmonary Hypertension, Other Pulmonary: Yes: Other (Spontaneus pneumothorax) Gastrointestinal: No: Ascites, Cancer, Constipation, Crohn's Disease, Diverticulitis, Diverticulosis, Esophageal Varices, Gastritis, GERD, GI Bleed, Hemorrhoids, Hiatal Hernia, Inflamatory Bowel Disease, Irritable Bowel Disease, Pancreatitis, Peptic Ulcer Disease, Ulcerative Colitis, Other Hepatobiliary: No: Cirrhosis, Cholelithiasis, Cholecystitis, Choledocholithiasis , Hepatitis A, Hepatitis B, Hepatitis C, Other Renal/: No: Renal Failure, Renal Inusuff, BPH, Cancer, Hematuria, Hemodialysis , Neurogenic Bladder, Renal Calculi, UTI, Other Reproductive: No: Ectopic , Endometriosis, Fibroids, PID, Polycystic Ovary Syndrome, Postmenopausal, Other ...LMP: 06/09/16 ...LMP Comment: expect period tomorrow ...: No Heme/Onc: No: Anemia, B12 Deficiency, Bleeding Disorder, Cancer, Current Chemotherapy, Current Radiation Therapy, Hemochromatosis, Hypercoaguable State, Myeloproliferative Synd, Sickle Cell Disease, Sickle Cell Trait, Thrombocytopenia, Other Infectious Disease: No: AIDS, C-Diff, Herpes Zoster, HIV, MRSA, STD's, Tuberculosis, VREF, Other Psych: No: Addictions, Anxiety, Bipolar, Depression, Panic, Psychosis, Schizophrenia, Other Musculoskeletal: No: Bursitis, Chronic low back pain, Hemiparesis, Hemiplegia, Osteoarthritis, Paraplegia, Other ENT: No: Allergic Rhinitis, Sinusitis, Other Endocrine: No: [place]'s Disease, [place]'s Disease, Diabetes Insipidus, Diabetes Mellitus, Hyperparathyroidism, Hyperthyroidism, Hypothyroidism, Osteopenia, SIADH, Other Dermatology: No: Basal Cell, Cellulitis, Eczema, Melanoma, Psoriasis, Squamous Cell, Other Additional Medical History: spontaneous pneumothax - Past Surgical History Past Surgical History: No: None, AAA Repair, AICD, Amputation, Appendectomy, Arthrosocopy, AV Fistula/Graft, Bariatric Surgery, Breast Biopsy, Bypass, CABG, Carotid Endarterectomy, Cataract Removal, Cholecystectomy, Colectomy, Colonoscopy, Colostomy, Craniotomy, , Cystectomy, Hernia Repair, Hysterectomy, Ileal Conduit, Ileosotomy, Joint Replacement, Kidney Transplant, Laminectomy, Liver Transplant, Mastectomy, Nephrectomy, Oopherectomy, Orchiectomy, Permanent Pacemaker, Prostatectomy, Splenectomy, Stent, Thoracotomy , TURP, Tonsillectomy, Tubal Ligation, Upper Endoscopy, Valve Replacement, Vasectomy, Vein Stripping/Ligation Additional Surgical History: s/p right VATS, bullectomy, mechanical pleurodesis , and partial pleurectomy (2016) - Alcohol/Substance Use Hx Alcohol Use: No History of Substance Use: denies: None, Cocaine, Heroin, Marijuana, Prescription , Tranquilizers - Smoking History Smoking history: Never smoked Have you smoked in the past 12 months: No Aproximately how many cigarettes per day: 0 - Social History ADL: Independent Occupation: [employer] Home Medications - Allergies Allergies/Adverse Reactions: Allergies Allergy/AdvReac Type Severity Reaction Status Date / Time No Known Allergies Allergy Verified 07/06/16 20:15 - Home Medications Home Medications: Ambulatory Orders NK [No Known Home Medication] 07/06/16 Family Disease History - Family Disease History Family Disease History: Other: Father (healthy and living), Mother (healthy and living), Sister (healthy and living) Review of Systems - Review of Systems Constitutional: reports: No Symptoms Eyes: reports: No Symptoms HENT: reports: No Symptoms Neck: reports: No Symptoms Cardiovascular: reports: No Symptoms Respiratory: reports: No Symptoms Gastrointestinal: reports: No Symptoms Genitourinary: reports: No Symptoms Breasts: reports: No Symptoms Reported Musculoskeletal: reports: No Symptoms Integumentary: reports: No Symptoms Neurological: reports: No Symptoms Endocrine: reports: No Symptoms Hematology/Lymphatic: reports: No Symptoms Psychiatric: reports: No Symptoms 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 Questionable Catamennial ptx. Suggestion witlh be starting on ocp or depo provera. If possibe, a bx at ptx site to determine endometrisos site. Will see as an opt and consider staring ocp or depo. Discussed lupron, but would start with ocp
--- NOTE | 2016-07-08 11:18 | PN ---
Progress Note (short form) - Note Progress Note: PT without any increased syptoms of SOB, pain and overall her breathing has improved. Vital Signs Period Temp Pulse Resp BP Sys/Palmer Pulse Ox Last 24 Hr 98.2 F-98.8 F 51-74 11-18 86-102/53-66 100 PE: GEN: appears cofortable Lungs: CTA b/l CXR-07/07 at 1500-improved right Pntx, seen at right costophrenic angle CXR 07/08 unchanged right pntx at costophrenic angle CBC, BMP 07/07/16 05:10 07/07/16 05:10 A/P: 45 yo female with recurrent right pntx with evidence of improvement Repeat CXR finding show improvement S/w Dr. Guadarrama and the plan is for a repeat cxr in the am of 07/09 and if no change she is stable and may f/u as needed as an outpt. If there is a worsening of SOB/CP please obtain repeat CXR, if at any time the pntx becomes larger and she has symptoms then please have IR place a guided pigtail catheter. Pt seen by LAB SCIENTIST and she will follow up as an oupt <Michelle Ford - Last Filed: 07/08/16 11:10> - Note Progress Note: seen and examined. agreed with above. stable right ptx. repeat cxr tomorrow. <Ulices Guadarrama - Last Filed: 07/09/16 12:15>
--- NOTE | 2016-07-08 12:57 | PN ---
Progress Note, Physician Chief Complaint: in bed nad axox3 no new c/o, no new CP/SOB, feels a little better; has some pelvic cramps sec to her period labs tests and meds d/w pt - Current Medication List Current Medications: Active Medications Acetaminophen (Tylenol -) 650 mg PO Q6H PRN PRN Reason: PAIN Acetaminophen (Tylenol -) 325 mg PO Q6H PRN PRN Reason: PAIN Heparin Sodium (Porcine) (Heparin -) 5,000 unit SQ TID CASTILLO Last Admin: 07/08/16 06:32 Dose: 5,000 unit Ibuprofen (Motrin -) 400 mg PO Q6H PRN PRN Reason: PAIN Last Admin: 07/08/16 09:57 Dose: 400 mg Morphine Sulfate (Morphine Injection -) 1 mg IVPUSH Q3H PRN PRN Reason: PAIN Oxycodone HCl (Roxicodone -) 5 mg PO Q6H PRN PRN Reason: PAIN - Objective Vital Signs: Vital Signs Temperature 98.6 F 07/08/16 10:00 Pulse Rate 65 07/08/16 10:00 Respiratory Rate 16 07/08/16 10:00 Blood Pressure 94/65 07/08/16 10:00 O2 Sat by Pulse Oximetry (%) 100 07/08/16 09:00 Constitutional: Yes: No Distress, Calm Eyes: Yes: Conjunctiva Clear HENT: Yes: Atraumatic Neck: Yes: Supple Cardiovascular: Yes: Regular Rate and Rhythm Respiratory: Yes: CTA Bilaterally Gastrointestinal: Yes: Soft. No: Distention, Tenderness Genitourinary: No: CVA Tenderness - Left, CVA Tenderness - Right Musculoskeletal: No: Joint Stiffness, Joint Swelling Extremities: No: Cold, Cool Edema: No Peripheral Pulses WNL: Yes Integumentary: No: Rash, Venous Stasis Changes Neurological: Yes: WNL, Alert, Oriented ...Motor Strength: WNL Psychiatric: Yes: WNL, Alert, Oriented. No: Agitated, Suicidal Ideation Labs: CBC, BMP 07/07/16 05:10 07/07/16 05:10 INR, PTT INR 1.04 (0.82-1.09) 07/06/16 23:30 - ....Imaging Other: Report Reviewed Assessment/Plan 45 female with h/o spontaneous pneumothorax admitted with new small pneumothorax films reviewed, pneumothorax stable at this point still no surgery indicated at this point will check serial CXR if pneumo stable can be DC home in am per CT surgery also to see STEEL HEATER for possible catamenial pneumothorax and BCP pills in order to prevent future pneumothorax DVT PFX d/w pt and staff, d/w ICU attending T time 40 min
--- NOTE | 2016-07-08 16:08 | PN ---
Teaching Attending Note Name of Resident: Derek Lopez ATTENDING PHYSICIAN STATEMENT I saw and evaluated the patient. I reviewed the resident's note and discussed the case with the resident. I agree with the resident's findings and plan as documented. SUBJECTIVE: Breathing feels a little better today. No CP. CXR: improving right PTX Intake & Output 07/05/16 07/06/16 07/07/16 07/08/16 23:59 23:59 23:59 23:59 Intake Total 1350 1950 Balance 1350 1950 Weight 132 lb 15.02 oz Last Vital Signs Temp Pulse Resp BP Pulse Ox 98.6 F 60 17 96/58 100 07/08/16 10:00 07/08/16 14:00 07/08/16 14:00 07/08/16 14:00 07/08/16 09:00 Active Medications Acetaminophen (Tylenol -) 650 mg PO Q6H PRN PRN Reason: PAIN Acetaminophen (Tylenol -) 325 mg PO Q6H PRN PRN Reason: PAIN Heparin Sodium (Porcine) (Heparin -) 5,000 unit SQ TID CASTILLO Last Admin: 07/08/16 15:37 Dose: 5,000 unit Ibuprofen (Motrin -) 400 mg PO Q6H PRN PRN Reason: PAIN Last Admin: 07/08/16 09:57 Dose: 400 mg Morphine Sulfate (Morphine Injection -) 1 mg IVPUSH Q3H PRN PRN Reason: PAIN Oxycodone HCl (Roxicodone -) 5 mg PO Q6H PRN PRN Reason: PAIN Constitutional: Yes: Awake and alert, No Distress Eyes: Yes: WNL, PERRL HENT: Yes: WNL Neck: Yes: WNL Cardiovascular: Yes: S1, S2 Respiratory: Yes: Clear, On Nasal O2. No: Accessory Muscle Use, Rales, Rhonchi , Wheezes Gastrointestinal: Yes: Normal Bowel Sounds. No: Tenderness ...Rectal Exam: Yes: Deferred Edema: No Peripheral Pulses WNL: Yes (+2 bilateral pedal pulses ) Integumentary: Yes: WNL Psychiatric: Yes: WNL Labs: Assessment/Plan (?) Catamenial PTX Recurrent PTX (3rd) Surgical consult noted -> follow CXR and clinical symptoms since PTX is small O2 BD TX PRN OOB to chair Incentive Spirometry PO as tolerated Will likely need OPCs Dr Hazel
[2016-07-09] MEDS: HEPARIN NA (PORCINE) 5,000 UNITS/ML 1ML VIAL SQ SCH ×2 (06:40→13:29)
[2016-07-09] MEDS: IBUPROFEN 400 MG TABLET (FP) PO PRN ×2 (06:41→16:13)
--- NOTE | 2016-07-09 08:06 | PN ---
[id number] states she is feeling better, her breathing continues to improve, denies SOB. States the pain in her right chest she had with taking deep breaths is improved. No new complaints. Last Vital Signs Temp Pulse Resp BP Pulse Ox 98.5 F 61 18 93/58 100 07/09/16 06:00 07/09/16 06:00 07/09/16 06:00 07/09/16 06:00 07/08/16 21:00 Exam: Gen: NAD, pleasant and cooperative Cardio: RRR Resp: CTA bilat. 07/07 CXR- slightly decreased right pneumothorax 07/08 CXR- unchanged right pneumothorax 07/09 CXR- pending <Valeria Keane - Last Filed: 07/09/16 08:18> - Note Progress Note: seen and examined. agree with above. no major c/o. cxr showed stable right basal ptx. no evidence of expanding or tension ptx. remains clinically stable with no cardiopulmonary distress at the present time. 1. cont supp care 2. d/c plan per primary team 3. f/u with thoracic surgery as outpatient <Ulices Guadarrama - Last Filed: 07/09/16 14:47> Problem List - Problems (1) Pneumothorax Assessment/Plan: Recurrent right pneumothorax, symptoms continuing to improve CXR ordered for this morning Follow-up CXR, if stable patient may follow-up with Dr. Guadarrama as needed as an outpatient Pt will see Dr. Rutherford as outpt for OCP Code(s): J93.9 - PNEUMOTHORAX, UNSPECIFIED Qualifiers: Pneumothorax type: unspecified pneumothorax Qualified Code(s): J93.9 - Pneumothorax, unspecified <Valeria Keane - Last Filed: 07/09/16 08:18>
--- NOTE | 2016-07-09 12:28 | PN ---
Progress Note (short form) - Note Progress Note: PULMONARY APPEARS STABLE NO CHANGE IN EXAM CXR NO CHANGE RIGHT PTX S/P RVATS 05/2015:RML BLEBECTOMY MECHANICAL PLEURODESIS PARTIAL PLEURECTOMY PATH REPORT REVIEWED AWAITING T-SURG OPINION Amy GRANADOS MD
[2016-07-09 14:03] VITALS: BP 110/54; PULSE 69; TEMP 98.4
--- NOTE | 2016-07-09 15:13 | PN ---
Progress Note (short form) - Note Progress Note: Addendum: 1. Repeat chest x-ray on 07/12/16, as outpatient 2. Follow up with PMD and Thoracic Surgery next week 3. Spoke with Dr. Renetta Bo
--- NOTE | 2016-07-09 15:57 | DS ---
Physical Examination Vital Signs: Vital Signs Temperature 98.4 F 07/09/16 13:59 Pulse Rate 69 07/09/16 13:59 Respiratory Rate 18 07/09/16 13:59 Blood Pressure 110/54 07/09/16 13:59 O2 Sat by Pulse Oximetry (%) 100 07/08/16 21:00 Findings/Remarks: OOB to chair walks without SOB still has some R CP but better; CXR per CT Sx and pulm no change; OK to DC home and f/u next week; d/w pt and at bedside all DC instructions. Constitutional: Yes: No Distress, Calm Eyes: Yes: Conjunctiva Clear HENT: Yes: Atraumatic Neck: Yes: Supple Cardiovascular: Yes: Regular Rate and Rhythm Respiratory: Yes: CTA Bilaterally Gastrointestinal: Yes: Soft. No: Distention, Tenderness Renal/: No: CVA Tenderness - Left, CVA Tenderness - Right Musculoskeletal: No: Joint Stiffness, Joint Swelling Extremities: No: Cold, Cool Edema: No Peripheral Pulses WNL: Yes Integumentary: No: Rash, Venous Stasis Changes Neurological: Yes: WNL, Alert, Oriented ...Motor Strength: WNL Psychiatric: Yes: WNL, Alert, Oriented. No: Agitated, Suicidal Ideation Labs: CBC, BMP 07/07/16 05:10 07/07/16 05:10 Discharge Summary Reason For Visit: PNEUMOTHORAX Current Active Problems Pneumothorax (Acute) Procedures: Principal: admitted with small R sided pneumothorax Other Procedures: ICU, pulmonary and CT sx eval;. no cehst tbe needed;. also seen by INFORMATION AND DATA ARCHITECT ANALYST for possible BCP; to prevent catamenial pneumothorax Hospital Course: improved with above; DC home with f/u as advised Condition: Improved - Instructions Diet, Activity, Other Instructions: f/u PCP and pulmonary and CT surgery in 1-4 weeks after DC F/u with INFORMATION AND DATA ARCHITECT ANALYST in 1-2 weeks for BCP RTER if recurrent or worse CP/SOB d/w pt and at bedside all the above, d/w staff Referrals: Garcia Bo MD [Primary Care Provider] - Sohan Varner MD [Staff Physician] - Javi Hazel MD [Staff Physician] - Ulices Guadarrama MD [Staff Physician] - Disposition: HOME - Home Medications Comprehensive Discharge Medication List: Ambulatory Orders Acetaminophen [Tylenol .Regular Strength -] 650 mg PO Q6H PRN #0 tablet Ibuprofen [Motrin -] 400 mg PO Q6H PRN #0 tablet 07/09/16
== END 2016-07-09 18:14 | disposition home or self-care (01) | DRG 200 ==
LOC: JER 20:13 → JERBED 23:31 → UNDOADMIN 23:41 → JICU 07-07 00:30 → JERBED 07-07 00:30 → J8W 07-08 18:41
PROVIDERS: ADMIT Specialist; ATTEND Specialist
DX: J93.83 Other pneumothorax (principal); J94.8 Other specified pleural conditions; K76.89 Other specified diseases of liver
CPT/HCPCS: 36415; 71010-TC; 71020-TC; 71111-TC; 71250-TC; 74176; 80048; 80053; 81003; 81015; 82550; 83735; 84100; 84484; 84703; 85025; 85027; 85610; 86850; 86900; 86901; 87086; 93005; 93010; 94010; 99284-25; J1644

== ENCOUNTER 2016-07-20 15:32 | Emergency (ER) | payer BC ==
[2016-07-20 15:38] VITALS: TEMP 97.8; BMI 22.3
--- NOTE | 2016-07-20 16:34 | PDOC ---
History of Present Illness - General History Source: Patient Exam Limitations: No Limitations - History of Present Illness Initial Comments: 07/20/16 19:02 The patient is a 45 year old female presenting with her , with a significant past medical history of asthma and right pneumothorax (x3), who presents to the emergency department with chest pain, shortness of breath and dizziness onset today. She describes her chest pain as a pressure like sensation , ranging from mild to moderate, without radiation or modifying factors. She notes that her shortness of breath and chest pain is relieved when she walks. She states that she has a dry mild cough for the past 2-3 days. She notes that her last pneumothorax was 12 days ago. She reports that she has had her pneumothorax around the same time she had her menstrual period and her physicians think it may be related. The patient denies shortness of breath and headache. Denies fever, chills, nausea, vomit, diarrhea and constipation. Denies dysuria, frequency, urgency and hematuria. Allergies: None Past surgical history: chest tube insertion X2, lung surgery 06/10 VAT2014 Social history: No alcohol, tobacco or drug use reported PMD - Dr. Renetta Bo Surgeon - Dr. Feng <Rocky Gilmore - Last Filed: 07/20/16 19:02> - General History Source: Patient Exam Limitations: No Limitations <Faustino Holguin - Last Filed: 07/20/16 20:20> - General Chief Complaint: Shortness of Breath Stated Complaint: SOB Time Seen by Provider: 07/20/16 16:18 Past History <Rocky Gilmore - Last Filed: 07/20/16 19:02> - Past Medical History Anemia: No Asthma: Yes (SPONTANEOUS PNEUMOTHORAX) Suicide Attempt (Hx): No - Surgical History Cardiac Surgery: (chest tube insertion X2) Lung Surgery: Yes (06/10 VAT2014) - Psycho/Social/Smoking Cessation Hx Anxiety: No Suicidal Ideation: No Smoking History: Never smoked Have you smoked in the past 12 months: No Number of Cigarettes Smoked Daily: 0 Information on smoking cessation initiated: No Hx Alcohol Use: No Drug/Substance Use Hx: No Substance Use Type: None Hx Substance Use Treatment: No <Faustino Holguin - Last Filed: 07/20/16 20:20> - Past Medical History Allergies/Adverse Reactions: Allergies Allergy/AdvReac Type Severity Reaction Status Date / Time shellfish derived Allergy Unknown Verified 07/20/16 15:33 Home Medications: Ambulatory Orders Acetaminophen [Tylenol .Regular Strength -] 650 mg PO Q6H PRN #0 tablet Ibuprofen [Motrin -] 400 mg PO Q6H PRN #0 tablet 07/09/16 Review of Systems - Review of Systems Able to Perform ROS?: Yes Comments:: 07/20/16 19:02 CONSTITUTIONAL: No reported: Fever, Chills, Diaphoresis, Generalized Weakness, Malaise, Loss of Appetite HEENT: No reported: Rhinorrhea, Nasal Congestion, Throat Pain, Throat Swelling, Difficulty Swallowing, Mouth Swelling, Ear Pain, Eye Pain, Visual Changes CARDIOVASCULAR: Reported: Chest pain No reported: Syncope, Palpitations, Irregular Heart Rate, Lightheadedness, Peripheral Edema RESPIRATORY: Reported: Cough, Shortness of Breath, No reported: SOB with Exertion, Orthopnea, Wheezing, Stridor, Hemoptysis GASTROINTESTINAL: No reported: Abdominal pain, Abdominal Distension, Nausea, Vomiting, Diarrhea, Constipation, Melena, Hematochezia GENITOURINARY: No reported: Dysuria, Frequency, Urgency, Hesitancy, Flank Pain, Genital Pain MUSCULOSKELETAL: No reported: Myalgia, Arthralgia, Joint Swelling, Back pain, Neck Pain SKIN: No reported: Rash, Itching, Pallor HEMEATOLOGIC/IMMUNOLOGIC: No reported: Easy Bleeding, Easy Bruising, Lymphadenopathy, Frequent infections ENDOCRINE: No reported: Unexplained Weight Gain, Unexplained Weight Loss, Heat Intolerance , Cold Intolerance NEUROLOGIC: No reported: Headache, Focal Weakness, Paresthesias, Vertigo, Lightheadedness, Unsteady Gait, Seizure, Mental Status Changes, Incontinence PSYCHIATRIC: No reported: Anxiety, Depression <Rocky Gilmore - Last Filed: 07/20/16 19:02> *Physical Exam - Vital Signs Last Vital Signs Temp Pulse Resp BP Pulse Ox 97.8 F 64 18 107/58 100 07/20/16 15:34 07/20/16 15:34 07/20/16 15:34 07/20/16 15:34 07/20/16 15:34 - Physical Exam Comments: 07/20/16 19:02 GENERAL: The patient is awake, alert, and fully oriented, Nontoxic - in no acute distress. HEAD: Normocephalic, atraumatic. EYES: extraocular movements intact, sclera anicteric, conjunctiva clear. ENT: Normal voice, Moist mucous membranes. NECK: Normal range of motion, supple LUNGS: Breath sounds equal, clear to auscultation bilaterally. No wheezes, no rhonchi, no rales. HEART: Regular rate and rhythm, without murmur, rub or gallop. ABDOMEN: Soft, nontender, normoactive bowel sounds. No guarding, no rebound.No CVA tenderness EXTREMITIES: Normal range of motion, no edema. No clubbing or cyanosis. No cords, erythema, or tenderness. NEUROLOGICAL: No facial assymetry, Normal speech, PSYCH: Normal mood, normal affect. SKIN: Warm, Dry, normal turgor <Rocky Gilmore - Last Filed: 07/20/16 19:02> - Vital Signs Last Vital Signs Temp Pulse Resp BP Pulse Ox 97.8 F 64 18 107/58 100 07/20/16 15:34 07/20/16 15:34 07/20/16 15:34 07/20/16 15:34 07/20/16 15:34 <Faustino Holguin - Last Filed: 07/20/16 20:20> Heart Score/ECG Review - ECG Impressions Comment:: 07/20/16 17:08 Twelve-lead EKG was performed and reviewed by me. There is normal sinus rhythm with a normal rate. Rate of 62 The axis is normal. The intervals are normal. There is normal R wave progression There are no ST or T wave abnormalities. Impression: Normal twelve-lead EKG <Faustino Holguin - Last Filed: 07/20/16 20:20> ED Treatment Course - ADDITIONAL ORDERS Additional order review: Laboratory Results 07/20/16 15:40 Urine HCG, Qual Negative - RADIOLOGY Radiograph Interpretation: 07/20/16 16:50 Chest X-Ray Reviewed by: Dr. Lyla Velazquez Impression: No gross pneumothorax is identified. However, previously described right pneumothorax was best visualized on prior CT scan of the chest. <Rocky Gilmore - Last Filed: 07/20/16 19:02> - LABORATORY CBC & Chemistry Diagram: 07/20/16 19:01 07/20/16 19:01 - ADDITIONAL ORDERS Additional order review: Laboratory Results 07/20/16 15:40 Urine HCG, Qual Negative - RADIOLOGY Radiology Studies Ordered: Category Date Time Status CHEST PA & LAT [RAD] Stat Radiology 07/20/16 15:40 Completed <Faustino Holguin - Last Filed: 07/20/16 20:20> Medical Decision Making - Medical Decision Making 07/20/16 17:03 Dr. Ulices Cao was called regarding the patient at 5:03pm. Dr. Mcdaniel covering. Dr. 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 states it improves when she ambulates and is worse when she is sitting. 07/20/16 17:[address] rodriguez (covering for dr. cao) agreed with sparing the pt another CT if her cxr shows now gross ptx ekg is unremarkable pt has appt with her tomorrow A portion of this note was documented by scribe services under my direction. I have reviewed the details of the note, within reason, and agree with the documentation with the following case summary and management plan written by me 07/20/16 19:40 pt feeling improved will dc the pt if labs negative to fu with dr. Cao tomorrow. 07/20/16 20:18 trop neg will dc with ct surgery tomorrow I discussed the physical exam findings, ancillary test results and final diagnoses with the patient. I answered all of the patient's questions. The patient was satisfied with the care received and felt comfortable with the discharge plan and treatment plan. The patient will call their primary care physician within 24 hours to arrange follow-up and will return to the Emergency Department with any new, persistent or worsening symptoms. <Faustino Holguin - Last Filed: 07/20/16 20:20> *DC/Admit/Observation/Transfer - Attestations Scribe Attestion: 07/20/16 19:02 Documentation prepared by Rocky Gilmore, acting as medical billing representative for Faustino Holguin MD <Rocky Gilmore - Last Filed: 07/20/16 19:02> - Discharge Dispostion Admit: No <Faustino Holguin - Last Filed: 07/20/16 20:20> Diagnosis at time of Disposition: Chest pain Qualifiers: Chest pain type: unspecified Qualified Code(s): R07.9 - Chest pain, unspecified - Discharge Dispostion Disposition: HOME Condition at time of disposition: Improved - Referrals Referrals: Renetta Bo [Primary Care Provider] - Ulices Cao MD [Staff Physician] - - Patient Instructions Printed Discharge Instructions: DI for Atypical Chest Pain Additional Instructions: Return to the emergency department immediately with ANY new, persistent or worsening symptoms. You MUST call and follow up with Dr. Cao tomorrow for further evaluation of your symptoms. Results were discussed with you. Please make sure your doctor reviews the results of your emergency evaluation. Print Language: VINCENTIAN
[2016-07-20 19:06] VITALS: PULSE 88
[2016-07-20 19:07] VITALS: BP 104/67
[2016-07-20 19:07] LABS: BASOPHIL 0.7 % (0-2.0); EOSINOPHIL 1.2 % (0-4.5); MCH 31.2 pg (25.7-33.7); MCHC 33.1 g/dl (32.0-36.0); MEAN CELL VOLUME 94.4 fl (80-96); MEAN PLT VOLUME 7.8 fl (7.5-11.1); NEUTROPHILS 56.2 % (42.8-82.8); PLATELET COUNT 274 K/MM3 (134-434); RDW 13.1 % (11.6-15.6); WHITE BLOOD COUNT 6.5 K/mm3 (4.0-10.0)
[2016-07-20 20:00] LABS: ALBUMIN 3.8 g/dl (3.4-5.0); ANION GAP 10 (8-16); BILIRUBIN,TOTAL 0.5 mg/dL (0.2-1.0); CALCIUM 8.9 mg/dL (8.5-10.1); CO2 23 mmol/L (21-32); CREATININE 0.7 mg/dL (0.55-1.02); GLUCOSE,RANDOM 89 mg/dL (74-106); SGOT/AST 18 U/L (15-37); TOT PROT 7.5 g/dl (6.4-8.2)
[2016-07-20 20:04] LABS: ALK PHOS 42 U/L (45-117); SGPT/ALT 21 U/L (12-78); TROPONIN I < 0.02 ng/ml (0.00-0.05)
--- NOTE | 2016-07-21 11:26 | EKG ---
Test Reason : Blood Pressure : / mmHG Vent. Rate : 062 BPM Atrial Rate : 062 BPM P-R Int : 140 ms QRS Dur : 090 ms QT Int : 442 ms P-R-T Axes : 061 076 071 degrees QTc Int : 448 ms NORMAL SINUS RHYTHM NORMAL ECG WHEN COMPARED WITH ECG OF 06-JUL-2016 23:11, NO SIGNIFICANT CHANGE WAS FOUND Confirmed by CARLOS KAPADIA MD ([id number]) on 07/21/2016 11:25:54 AM Referred By: Confirmed By:CARLOS KAPADIA MD
== END 2016-07-20 20:37 | disposition home or self-care (01) ==
LOC: JER 15:32
DX: R07.9 Chest pain, unspecified (principal); J45.909 Unspecified asthma, uncomplicated; J93.83 Other pneumothorax
CPT/HCPCS: 36415; 71020-TC; 80053; 82550; 84484; 84703; 85025; 93005; 93010; 99283-25

== ENCOUNTER 2017-07-12 10:43 | Emergency (ER) | payer BC ==
[2017-07-12 10:50] VITALS: TEMP 98.7; BMI 21.6
--- NOTE | 2017-07-12 12:11 | PDOC ---
History of Present Illness - General History Source: Patient, Family Exam Limitations: No Limitations - History of Present Illness Initial Comments: 07/12/17 12:27 The patient is a 46 year old female, with a significant past medical history of asthma and right pneumothorax (3), who presents to the emergency department with , one week of shortness of breath upon exertion and intermittent pleuritic chest pain. The patient states the chest pain is a pressure like sensation, rated 5/10, radiates to the right shoulder and right back region, made worse with deep inspiration, and waxing and waning over the past week. The patient states she has been taking Advil for the pain with moderate relief. The patient also states she has had a sore throat for the past couple of days. The patient states her current symptoms feel worse than her previous pneumothorax. The patient states she was prescribed a 6 month treatment of Lupron which ended approx 3-4 months ago for suspected endometriosis. The patient also reports her LMP was 2 weeks ago. She denies recent fevers, chills, headache or dizziness. She denies recent nausea, vomit, diarrhea or constipation. She denies recent dysuria, frequency, urgency or hematuria. Allergies: shellfish derived Past surgical history: chest tube insertion x2, lung surgery 06/10 VAT2014 Social history: Nonsmoker. Denies EtOH use and recreational drug use. Primary Care Physician: Dr. Renetta Bo Showroom Salesperson: Dr. Weinstein <Raheem Solorzano - Last Filed: 07/12/17 13:43> <Roe Maldonado - Last Filed: 07/12/17 14:22> - General Chief Complaint: Chest Pain Stated Complaint: chest pain, sore throat, hx of 3 Pneumothorax Time Seen by Provider: 07/12/17 11:15 Past History <Raheem Solorzano - Last Filed: 07/12/17 13:43> - Past Medical History Anemia: No Asthma: Yes (SPONTANEOUS PNEUMOTHORAX) Cancer: No Cardiac Disorders: No CVA: No COPD: No CHF: No Dementia: No Diabetes: No GI Disorders: No Disorders: No HTN: No Hypercholesterolemia: No Liver Disease: No Seizures: No Thyroid Disease: No Other medical history: 3 Spontanious Pneumothorax - Surgical History Abdominal Surgery: No Appendectomy: No Cardiac Surgery: (chest tube insertion X2) Cholecystectomy: No Lung Surgery: Yes (06/10 VAT2014) Neurologic Surgery: No Orthopedic Surgery: No - Suicide/Smoking/Psychosocial Hx Smoking History: Never smoked Have you smoked in the past 12 months: No Number of Cigarettes Smoked Daily: 0 Information on smoking cessation initiated: No Hx Alcohol Use: No Drug/Substance Use Hx: No Substance Use Type: None Hx Substance Use Treatment: No <EricaRoe - Last Filed: 07/12/17 14:22> - Past Medical History Allergies/Adverse Reactions: Allergies Allergy/AdvReac Type Severity Reaction Status Date / Time shellfish derived Allergy Unknown Verified 07/12/17 10:50 Home Medications: Ambulatory Orders Acetaminophen [Tylenol .Regular Strength -] 650 mg PO Q6H PRN #0 tablet Ibuprofen [Motrin -] 400 mg PO Q6H PRN #0 tablet 07/09/16 Review of Systems - Review of Systems Constitutional: No: Chills, Fever Respiratory: Yes: See HPI, SOB with Exertion. No: Cough Cardiac (ROS): Yes: See HPI. No: Edema Neurological: No: Headache All Other Systems: Reviewed and Negative <LenardamishaRoe - Last Filed: 07/12/17 14:22> *Physical Exam - Vital Signs Last Vital Signs Temp Pulse Resp BP Pulse Ox 98.7 F 77 16 124/67 100 07/12/17 10:48 07/12/17 11:45 07/12/17 11:45 07/12/17 10:48 07/12/17 11:45 - Physical Exam Comments: 07/12/17 12:30 GENERAL: The patient is awake, alert, and fully oriented, in no acute distress. HEAD: Normal with no signs of trauma. EYES: Pupils equal, round and reactive to light, extraocular movements intact, sclera anicteric, conjunctiva clear with no pallor. ENT: Ears normal, nares patent, oropharynx clear without exudates. Moist mucous membranes. NECK: Normal range of motion, supple without lymphadenopathy, JVD, or masses. LUNGS: Symmetric chest rise. ?Subtle more distal breath sounds on the right. Good air entry. No rales, rhonchi, wheezing or crackles. No palpable crepitus. HEART: Regular rate and rhythm, normal S1 and S2 without murmur or rub. ABDOMEN: Soft/nontender/nondistended. BS wnl. No guarding or rebound. No palpable masses. No hepatosplenomegaly. EXTREMITIES: Normal range of motion, no edema. No clubbing or cyanosis. No cords, erythema, or tenderness. NEUROLOGICAL: Cranial nerves II through XII grossly intact. Normal speech, normal gait. PSYCH: Normal mood, normal affect. SKIN: Warm, Dry, normal turgor, no rashes or lesions noted. <Raheem Solorzano - Last Filed: 07/12/17 13:43> - Vital Signs Last Vital Signs Temp Pulse Resp BP Pulse Ox 98.7 F 77 16 124/67 100 07/12/17 10:48 07/12/17 11:45 07/12/17 11:45 07/12/17 10:48 07/12/17 11:45 <Roe Maldonado - Last Filed: 07/12/17 14:22> ED Treatment Course - LABORATORY CBC & Chemistry Diagram: 07/12/17 12:25 07/12/17 12:25 - RADIOLOGY Radiograph Interpretation: 07/12/17 13:43 EXAM#: TYPE/EXAM: RESULT: [id number] RAD/CHEST PA LAT Indication: Shortness of breath and chest pain The heart is normal size. Lungs are well expanded and clear of infiltrates. Costophrenic angles are sharp. Elevation of the right diaphragm noted. There is no evidence of pneumothorax. Bony thorax appears grossly intact. IMPRESSION: No acute cardiopulmonary pathology. Reported By: Marbin Rodrigues MD <Raheem Solorzano - Last Filed: 07/12/17 13:43> - LABORATORY CBC & Chemistry Diagram: 07/12/17 12:25 07/12/17 12:25 - RADIOLOGY Radiology Studies Ordered: Category Date Time Status CHEST PA & LAT [RAD] Stat Radiology 07/12/17 11:51 Ordered <Roe Maldonado - Last Filed: 07/12/17 14:22> Medical Decision Making - Medical Decision Making 07/12/17 12:10 A portion of this note was documented by scribe services under my direction. I have reviewed the details of the note, within reason, and agree with the documentation with the following case summary and management plan written by me. 46-year-old female with history of recurring catamenial right-sided pneumothoraces 3 presents now with intermittent right chest pain, pleuritic in nature, persistent now for one week. LMP was 3, presents for evaluation. Initial pneumothorax had resolution with thoracostomy, then had VATS 2016, then loculated PTX conservatively managed. VSS, HR 70s, o2 100% on room air ? subtle more distant BS on right, but otherwise symmetric chest rise and good air entry. no palpable crepitus heart regular no edema 46-year-old female presents with symptoms typical of her recurring catamenial pneumothoraces. No other suspicion for ACS or PE, clinically well-appearing. Rule out recurrent pneumothorax Chest x-ray, would likely have CT if chest x-ray normal Placed on supplemental oxygen Labs and IV access obtained Followed by Dr. Weinstein of pulmonology, will discuss. 07/12/17 13:09 On my preliminary review of the chest x-ray, there is no obvious pneumothorax or subcutaneous free air. Given severity of symptoms Will proceed with CT chest, patient is in agreement. labs nl, trop negative. clinically unchanged and HD stable. 07/12/17 14:16 CT chest without acute ptx. Seen by Dr. Weinstein (her pan devulcanizer helper) in the ED and we all agree with d/c plan at this time. Understands return criteria, will f/u in office. <Roe Maldonado - Last Filed: 07/12/17 14:22> *DC/Admit/Observation/Transfer - Attestations Scribe Attestion: 07/12/17 12:32 Documentation prepared by Raheem Solorzano, acting as medical reimbursement specialist for Roe Maldonado MD. <Raheem Solorzano - Last Filed: 07/12/17 13:43> <Roe Maldonado - Last Filed: 07/12/17 14:22> Diagnosis at time of Disposition: History of pneumothorax - Discharge Dispostion Disposition: HOME Condition at time of disposition: Stable - Referrals Referrals: Renetta Bo [Primary Care Provider] - Aureliano Weinstein MD, MD [Staff Physician] - - Patient Instructions Printed Discharge Instructions: DI for Atypical Chest Pain Additional Instructions: Activity as tolerated. Stay hydrated. A chest xray and CT scan showed no evidence of a pneumothorax. Tylenol 1000 mg every 8 hours and/or ibuprofen 600 mg every 8 hours as needed for pain. Continue your medications as previously prescribed by your physician. You should follow up with Dr. Bo and Dr. Weinstein as soon as possible regarding today's emergency department visit. Return to the emergency department for any new or concerning symptoms, particularly persistent or worsening pain, worsening shortness of breath, bloody cough, fevers or chills. - Post Discharge Activity
[2017-07-12 12:33] LABS: BASO % 0.6 % (0-2.0); EOS % 0.8 % (0-4.5); HEMOGLOBIN 12.9 GM/dL (10.7-15.3); LYMPH % 17.5 % (8-40); MCHC 33.1 g/dl (32.0-36.0); MEAN CELL VOLUME 96.7 fl (80-96); MEAN PLT VOLUME 7.7 fl (7.5-11.1); MONO % 4.9 % (3.8-10.2); NEUT % 76.2 % (42.8-82.8); PLATELET COUNT 248 K/MM3 (134-434); RBC 4.04 M/mm3 (3.60-5.2); RDW 12.9 % (11.6-15.6); WHITE BLOOD COUNT 7.6 K/mm3 (4.0-10.0)
[2017-07-12 12:51] LABS: PROTHROMBIN TIME (PATIENT) 11.3 SEC (9.98-11.88)
[2017-07-12 12:57] LABS: ALBUMIN 3.4 g/dl (3.4-5.0); ANION GAP 9 (8-16); BILIRUBIN,TOTAL 0.6 mg/dL (0.2-1.0); BLOOD UREA NITROGEN 14 mg/dL (7-18); CALCIUM 8.3 mg/dL (8.5-10.1); CHLORIDE 107 mmol/L (98-107); CO2 27 mmol/L (21-32); CREATININE 0.7 mg/dL (0.55-1.02); GLUCOSE,RANDOM 95 mg/dL (74-106); MAGNESIUM 2.4 mg/dL (1.8-2.4); SGOT/AST 15 U/L (15-37); SGPT/ALT 14 U/L (12-78); SODIUM 143 mmol/L (136-145); TOT PROT 6.7 g/dl (6.4-8.2)
[2017-07-12 13:00] LABS: ALK PHOS 48 U/L (45-117)
[2017-07-12 14:42] VITALS: BP 99/62; PULSE 70
--- NOTE | 2017-07-12 16:29 | EKG ---
Test Reason : Blood Pressure : / mmHG Vent. Rate : 068 BPM Atrial Rate : 068 BPM P-R Int : 130 ms QRS Dur : 090 ms QT Int : 408 ms P-R-T Axes : 058 071 062 degrees QTc Int : 433 ms NORMAL SINUS RHYTHM NORMAL ECG WHEN COMPARED WITH ECG OF 20-JUL-2016 15:43, NO SIGNIFICANT CHANGE WAS FOUND Confirmed by Fito Vazquez ([id number]) on 07/12/2017 4:28:33 PM Referred By: Confirmed By:Fito Vazquez
== END 2017-07-12 14:33 | disposition home or self-care (01) ==
LOC: JER 10:43
DX: Z87.09 Personal history of other diseases of the respiratory system (principal)
CPT/HCPCS: 36415; 71046-TC-FY; 71250-TC; 80053; 82550; 83735; 84484; 84703; 85025; 85610; 93005; 93010; 99284-25